=== PATIENT | male | born 1995 | race Caucasian/White ===

== ENCOUNTER 2019-01-05 17:53 | Emergency (ER) | payer OTHER ==
[~2019-01-05] VITALS: Ht 180.3 cm; Wt 63.9 kg
[2019-01-05 17:55] VITALS: Ht 180.3 cm; Wt 63.9 kg
[2019-01-05] MEDS ORDERED: SOD CHLORIDE 0.9% 1,000 ML IV STA (18:30)
[2019-01-05] MEDS ORDERED: ONDANSETRON 4 MG INJ IV STA (18:30)
[2019-01-05] MEDS ORDERED: KETOROLAC 30 MG INJ IV STA (18:30)
--- NOTE | 2019-01-05 18:34 | ERD ---
ER Documentation Chief Complaint Chief Complaint vomiting since last night w/ AP HPI Patient is a 23-year-old male, past surgical history of appendectomy, presents the ER for concerns of abdominal pain and vomiting which started last night. Patient states the pain is localized to the epigastric and right upper quadrant. Patient denies any radiation of pain. Patient states he has been vomiting throughout the day, nonbloody, nonbilious, unable to tolerate p.o. fluids. Patient states he has been vomiting 20 times. Patient denies any chest pain or shortness of breath. Patient denies any fever or chills, lower abdominal pain, dysuria, frequency, urgency or hematuria. Patient denies any recent alcohol use. No recent travel. No sick contacts. ROS All systems reviewed and are negative except as per history of present illness. Medications Home Meds Active Scripts Acetaminophen* (Tylophen*) 500 Mg Capsule, 1 CAP PO Q6H PRN for PAIN AND OR ELEVATED TEMP, #20 CAP Prov:MAYUR BROWN PA-C 01/05/19 Ondansetron (Ondansetron Odt) 4 Mg Tab.rapdis, 4 MG PO Q6H PRN for NAUSEA AND/OR VOMITING, #10 TAB Prov:MAYUR BROWN PA-C 01/05/19 Allergies Allergies: Coded Allergies: No Known Allergy (Unverified , 01/05/19) PMhx/Soc History of Surgery: Yes (appendectomy) Hx Alcohol Use: Yes Hx Substance Use: No Hx Tobacco Use: No FmHx Family History: No diabetes Physical Exam Vitals Vital Signs Date Temp Pulse Resp B/P (MAP) Pulse Ox O2 O2 Flow FiO2 Time Delivery Rate 01/05/19 97.9 76 16 146/64 100 17:55 (91) Physical Exam GENERAL: Well-developed, well-nourished male. Appears in no acute distress. HEAD: Normocephalic, atraumatic. EYES: Pupils are equally reactive bilaterally. EOMs grossly intact. No conjunctival erythema. ENT: Moist mucous membranes. No uvula deviation. No kissing tonsils. NECK: Supple. No meningismus. Normal range of motion of the neck. LUNG: Clear to auscultation bilaterally. No rhonchi, wheezing, rales or coarse breath sounds. HEART: Regular rate and rhythm. No murmurs, rubs or gallops. ABDOMEN: Soft, nondistended. Tender to palpation in the right upper quadrant and epigastric region. Positive bowel sounds in all four quadrants. No rebound tenderness, no guarding. (-) McBurney's point tenderness. No CVA tenderness. EXTREMITIES: Equal pulses bilaterally. No peripheral clubbing, cyanosis or edema. No unilateral leg swelling. NEUROLOGIC: Alert and oriented. Moving all four extremities without any difficulty. Normal speech. Steady gait. SKIN: Normal color. Warm and dry. No rashes or lesions. Result Diagram: 01/05/197 01/05/191846 Results 24 hrs Laboratory Tests Test 01/05/19 18:47 White Blood Count 15.4 10^3/ul Red Blood Count 5.18 10^6/ul Hemoglobin 15.6 g/dl Hematocrit 45.7 % Mean Corpuscular Volume 88.2 fl Mean Corpuscular Hemoglobin 30.1 pg Mean Corpuscular Hemoglobin Concent 34.1 g/dl Red Cell Distribution Width 13.0 % Platelet Count 320 10^3/UL Mean Platelet Volume 9.6 fl Immature Granulocytes % 0.500 % Neutrophils % 93.6 % Lymphocytes % 4.0 % Monocytes % 1.7 % Eosinophils % 0.0 % Basophils % 0.2 % Nucleated Red Blood Cells % 0.0 /100WBC Immature Granulocytes # 0.080 10^3/ul Neutrophils # 14.4 10^3/ul Lymphocytes # 0.6 10^3/ul Monocytes # 0.3 10^3/ul Eosinophils # 0.0 10^3/ul Basophils # 0.0 10^3/ul Nucleated Red Blood Cells # 0.0 10^3/ul Urine Color YELLOW Urine Clarity SLIGHTLY CLOUDY Urine pH 5.0 Urine Specific [place] 1.031 Urine Ketones 2+ mg/dL Urine Nitrite NEGATIVE mg/dL Urine Bilirubin NEGATIVE mg/dL Urine Urobilinogen NEGATIVE mg/dL Urine Leukocyte Esterase TRACE Stacey/ul Urine Microscopic RBC 4 /HPF Urine Microscopic WBC 14 /HPF Urine Mucus FEW /HPF Urine Hemoglobin NEGATIVE mg/dL Urine Glucose NEGATIVE mg/dL Urine Total Protein 2+ mg/dl Sodium Level 144 mmol/L Potassium Level 3.9 mmol/L Chloride Level 103 mmol/L Carbon Dioxide Level 24 mmol/L Anion Gap 17 Blood Urea Nitrogen 15 mg/dl Creatinine 0.76 mg/dl Est Glomerular Filtrat Rate mL/min > 60 mL/min Glucose Level 135 mg/dl Calcium Level 9.9 mg/dl Total Bilirubin 0.7 mg/dl Direct Bilirubin 0.00 mg/dl Indirect Bilirubin 0.7 mg/dl Aspartate Amino Transf (AST/SGOT) 27 IU/L Alanine Aminotransferase (ALT/SGPT) 22 IU/L Alkaline Phosphatase 64 IU/L Total Protein 9.1 g/dl Albumin 5.3 g/dl Globulin 3.80 g/dl Albumin/Globulin Ratio 1.39 Lipase 25 U/L Current Medications Medications Dose Sig/Florina Start Time Status Last (Trade) Ordered Route PRN Stop Time Admin Dose Reason Admin Sodium 1,000 ml @ Q1H STAT 01/05/19 DC 01/05/19 Chloride 1,000 mls/hr IV 18:30 01/05/19 18:52 19:29 Ondansetron 4 mg ONCE STAT 01/05/19 DC 01/05/19 HCl (Zofran IV 18:30 01/05/19 18:51 Inj) 18:32 Ketorolac 30 mg ONCE STAT 01/05/19 DC 01/05/19 Tromethamine IV 18:30 01/05/19 18:51 (Toradol) 18:32 5 mg ONCE ONCE 01/05/19 DC 01/05/19 Metoclopramid IV 21:00 01/05/19 20:45 e HCl 21:01 (Reglan) Procedures/MDM ED COURSE: The patient was stable throughout ED course. I kept the patient and/or family informed of laboratory and diagnostic imaging results throughout the ED course. DIAGNOSTIC IMAGING: Read by radiologist. DIAGNOSTIC IMAGING REPORT Patient: OUMOU JEAN-BAPTISTE : 1995 Age: 23 Sex: M [id number] DOS: 01/05/19 194 Ordering MD: MAYUR BROWN PA-C Location: [facility] Room/Bed: PROCEDURE: CT Abdomen and Pelvis without contrast. CLINICAL INDICATION: Abdominal pain and vomiting. TECHNIQUE: Volumetrically-acquired images of the abdomen and pelvis were obtained without the administration of intravenous contrast. Images were then reformatted in the axial, sagittal, and coronal planes. DICOM images are available. CTDIvol (mGy): 6.10; Total Exam DLP (mGy-cm): 344.26. One or more of the following dose reduction techniques were utilized: - Automated exposure control. - Adjustment of the mA and/or kV according to patient size. - Use of iterative reconstruction technique. COMPARISON: Gallbladder ultrasound 01/05/2019. FINDINGS: Lower thorax: Unremarkable. Liver: Unremarkable noncontrast appearance. Biliary: Normal gallbladder. No biliary dilatation. Spleen: Normal. Pancreas: Unremarkable noncontrast appearance. Adrenal Glands: Normal. Urinary: The kidneys are symmetric in size. There are no nephroureteral stones. There is no hydronephrosis. There is no perinephric inflammation. The bladder is unremarkable. Gastrointestinal: The stomach is collapsed. The small and large intestines are unremarkable. The appendix is not seen. Lymph nodes: No lymphadenopathy. Scattered tiny mesenteric lymph nodes are observed. Vascular: The abdominal aorta is normal in caliber. Peritoneum/mesentery: No free fluid or free air. Reproductive organs: The prostate gland and seminal vesicles are unremarkable. Musculoskeletal: Unremarkable. Additional comments: None. IMPRESSION: No evidence of abdominopelvic mass, lymphadenopathy or acute inflammatory pathology. RPTAT: [facility] .Briana Landeros MD, MD Date Time Electronically viewed and signed by .Briana Landeros MD, MD on 01/05/2019 20:45 .T/ CC: MAYUR BROWN PA-C [id number] DIAGNOSTIC IMAGING REPORT Patient: OUMOU JEAN-BAPTISTE : 1995 Age: 23 Sex: M MR #: [id number] DOS: 01/05/19 1830 Ordering MD: MAYUR BROWN PA-C Location: [facility] Room/Bed: PROCEDURE: Right upper quadrant ultrasound CLINICAL INDICATION: Abdominal pain TECHNIQUE: Multiple real-time images were acquired of the patient's abdomen and right retroperitoneum utilizing a high resolution transducer. COMPARISON: None FINDINGS: The liver is normal in echogenicity and measures 15.6 cm. No focal hepatic masses are seen. The gallbladder is physiologically distended. There is no evidence of gallstones, gallbladder wall thickening, or pericholecystic fluid. The intra and extrahepatic bile ducts are normal in caliber. The common bile duct measures 1.9 mm. Midline images demonstrate the pancreas to be normal in echogenicity without obvious inflammatory change. Survey views of the right kidney demonstrate no evidence of hydronephrosis or renal calculi. The right kidney measures 10.5 cm. IMPRESSION: Unremarkable right upper quadrant ultrasound. No evidence of cholelithiasis or acute cholecystitis.. RPTAT: HH .Jose Hutchins MD, Date Time Electronically viewed and signed by .Jose Hutchins MD, MD on 01/05/2019 19:21 .W/ CC: MAYUR BROWN PA-C [phone] PROCEDURES: None. MEDICATIONS GIVEN: IV fluids, Zofran, Toradol, Reglan Patient tolerated medication well with no adverse reactions. Patient reported improvement in pain. MEDICAL DECISION MAKING: This is a 23-year-old male presents the ER for concerns of epigastric, right upper quadrant abdominal pain as well as vomiting x1 day.. Vital signs were reviewed. Patient is afebrile. Patient was not hypoxic. Abdominal exam did reveal tenderness palpation epigastric region. IV line was established. Blood work was obtained. CBC showed WC count of 15.4. Likely reactive. No evidence of anemia. CBC showed no evidence of systemic infection or severe anemia. CMP showed no evidence of electrolyte abnormalities, severe acidosis, alkalosis, renal failure, or liver disease. Lipase showed no evidence of acute pancreatitis. UA did show 2+ ketones, trace leukocyte esterase. Patient denies any dysuria, frequency, urgency or hematuria. No indication for UTI treatment at this time. Gallbladder ultrasound was unremarkable. CT abdomen pelvis is unremarkable. See formal report above. Upon reexamination, patient symptoms were improved. Upon reexamination, patient continued to feel nauseous. At that time Reglan was given. Patient was stated at this time that he was drinking last night. Symptoms are likely due to alcohol use. Low suspicion for acute coronary syndrome, AAA, mesenteric ischemia, lower lobe pneumonia, DKA, bowel perforation, cholecystitis, choledocholithiasis, ascending cholangitis, hepatic abscess, pancreatitis, PUD, gastritis, GERD, splenic rupture, diverticulitis, UTI, pyelonephritis, nephrolithiasis, appendicitis, constipation, testicular torsion, epididymitis, urethritis, or prostatitis. PRESCRIPTIONS: Zofran, Tylenol DISCHARGE: At this time, patient is stable for discharge and outpatient management. I have instructed the patient to follow-up with his/her primary care physician in 1-2 days. I have instructed the patient to promptly return to the ER at any time for any new or worsening symptoms including increased pain, nausea, vomiting, diarrhea, fever, weakness or LOC. The patient and/or family expressed understanding of and agreement with this plan. All questions were answered. Home care instructions were provided. Disclaimer: Inadvertent spelling and grammatical errors are likely due to E HR/dictation software use and do not reflect on the overall quality of patient care. Also, please note that the electronic time recorded on this note does not necessarily reflect the actual time of the patient encounter. Departure Diagnosis: Primary Impression: Epigastric pain Additional Impressions: Vomiting Vomiting type: unspecified Vomiting Intractability: unspecified Nausea presence: unspecified Qualified Codes: R11.10 - Vomiting, unspecified Alcohol use Condition: Fair Patient Instructions: Vomiting (6Y-Adult), Epigastric Pain (Uncertain Cause) Additional Instructions: Call your primary care doctor TOMORROW for an appointment during the next 1-2 days.See the doctor sooner or return here if your condition worsens before your appointment time. MAYUR BROWN PA-C Jan 05, 2019 18:34
[2019-01-05] MEDS ORDERED: METOCLOPRAMIDE 10 MG INJ IV ONE (21:00)
[2019-01-05] MEDS ORDERED: ACET500C5 PO (21:08)
[2019-01-05] MEDS ORDERED: ONDA4TAB14 PO (21:08)
[2019-01-05 21:24] VITALS: BP 99/54; PULSE 90; RESP 22
== END 2019-01-05 21:23 | disposition home or self-care (01) ==
LOC: FTE 17:53
DX: R10.13 Epigastric pain (principal); R11.10 Vomiting, unspecified; F10.99 Alcohol use, unspecified with unspecified alcohol-induced disorder
CPT/HCPCS: 36415; 74176; 76705; 80053; 81001; 83690; 85025; 96361; 96374; 96375; J1885; J2405; J2765; J7030; Z7502

== ENCOUNTER 2019-03-22 09:12 | Emergency (ER) | payer SELFPAY ==
[~2019-03-22] VITALS: Ht 180.3 cm; Wt 62.1 kg
[~2019-03-22 09:12] MED LIST: ACET500C5 PO; DICY10CA40 PO; FAMO-96 PO; ONDA4TAB14 PO
[2019-03-22 09:18] VITALS: BP 132/61; PULSE 59; RESP 18; Ht 180.3 cm; Wt 62.1 kg
[2019-03-22] MEDS ORDERED: ONDANSETRON (ODT) 4 MG TAB ODT STA (09:47)
[2019-03-22] MEDS ORDERED: LIDOCAINE/MYLANTA 40 ML BTL PO ONE (10:00)
== END 2019-03-22 10:55 | disposition home or self-care (01) ==
LOC: FTE 09:12
DX: R11.2 Nausea with vomiting, unspecified (principal); R19.7 Diarrhea, unspecified
CPT/HCPCS: 99283